=== PATIENT | female | born 1960 | race Caucasian/White ===

== ENCOUNTER → 2016-03-25 | Outpatient (REF) | payer OTHER ==
[2016-03-25 12:16] LABS: BASO # 0.1 K/mm3 (0.0-0.2); BASO % 0.9 % (0.0-1.0); EOS # 0.3 K/mm3 (0.0-0.50); EOS % 3.9 % (0.0-3.0); LARGE UNSTAINED CELL # 0.1 K/mm3 (0.0-0.4); LARGE UNSTAINED CELL % 1.7 % (0.0-4.0); LYMPH # 2.7 K/mm3 (1.5-4.5); MEAN CORPUSCULAR HEMOGLOBIN 30.1 pg (27.0-33.0); MEAN CORPUSCULAR VOLUME 91.2 fl (80.0-96.0); MONO # 0.5 K/mm3 (0.0-0.8); NEUTROPHILS # 3.8 K/mm3 (1.8-7.7); NEUTROPHILS % 51.5 % (36.0-66.0); PLATELET COUNT, AUTOMATED 220 k/mm3 (150-450); RED CELL DISTRIBUTION WIDTH 12.2 % (11.5-14.5); WHITE BLOOD COUNT 7.4 K/mm3 (4.0-10.0)
[2016-03-25 12:40] LABS: ALBUMIN 3.5 GM/DL (3.2-5.2); ALBUMIN/GLOBULIN RATIO 0.9 (1.00-1.93); BILIRUBIN,TOTAL 0.3 MG/DL (0.2-1.0); CALCIUM LEVEL 9.4 MG/DL (8.5-10.1); CREATININE FOR GFR 1.2 MG/DL (0.55-1.02); GLOMERULAR FILTRATION RATE 49.7 (>51); MAGNESIUM LEVEL 2.4 MG/DL (1.8-2.4); PERCENT SATURATION 20.9 % (13.2-37.4); POTASSIUM SERUM 4.7 MEQ/L (3.5-5.1); TOTAL PROTEIN 7.4 GM/DL (6.4-8.2)
== END ==
LOC: M SFHCPLAZ 08:07
PROVIDERS: ATTEND Family Medicine
DX: I10 Essential (primary) hypertension (principal); E78.5 Hyperlipidemia, unspecified

== ENCOUNTER → 2016-04-11 | Outpatient (REF) | payer OTHER | LOC: M SFHCWAGY 13:26 | PROVIDERS: ATTEND Family Medicine | DX: Z12.4 Encounter for screening for malignant neoplasm of cervix (principal) ==

== ENCOUNTER → 2016-04-11 | Outpatient (CLI) | payer OTHER ==
--- NOTE | 2016-04-11 14:23 | REPMRS ---
Patient History The patient states she had a clinical breast exam in 03/2016. Patient is postmenopausal. No known family history of cancer. 2 benign stereotatic breast biopsies of the right breast, May 17, 2008. Digital Woman Screen Mammo: April 11, 2016 - Exam #: [id number] Bilateral CC and MLO view(s) were taken. Technologist: Nakita Noriega, Technologist Prior study comparison: March 09, 2015, digital woman screen mammo performed at [facility]. December 07, 2012, digital woman screen mammo performed at [facility]. April 16, 2011, digital woman screen mammo performed at [facility]. June 08, 2009, bilateral bilat screen digital mammo performed at [facility]. FINDINGS: The breast tissue is almost entirely fat. There has been no change in the appearance of the mammogram from the prior studies. There is no interval development of dominant mass, areas of architectural distortion, or clustered microcalcification typical of malignancy. A stereotactic clip is again seen in deep central right breast. Scattered lymph nodes are seen in the axillae. No significant changes when compared with prior studies. ASSESSMENT: BI-RADS/ACR category 1 mammogram. Negative. Recommendation Routine screening mammogram in 1 year. A. Negative x-ray reports should not delay biopsy if a dominant or clinically suspicious mass is present. B. Four to eight percent of cancers are not identified by mammography. C. Adenosis and dense breast may obscure an underlying neoplasm.(for women over age 40). This mammogram was interpreted with the aid of an FDA-approved computer-aided dectection system. Electronically Signed By: Kostas Casarez MD 04/11/16 [id number]
== END ==
LOC: M WHC 12:57
PROVIDERS: ATTEND Family Medicine
DX: Z12.31 Encounter for screening mammogram for malignant neoplasm of breast (principal)

== ENCOUNTER → 2016-05-05 | Outpatient (CLI) | payer OTHER ==
[2016-05-05 18:04] LABS: ANION GAP 7 MEQ/L (8-16); BLOOD UREA NITROGEN 14 MG/DL (7-18); CALCIUM LEVEL 10.5 MG/DL (8.5-10.1); CARBON DIOXIDE LEVEL 30 MEQ/L (21-32); CHLORIDE LEVEL 102 MEQ/L (98-107); CREATININE FOR GFR 1.01 MG/DL (0.55-1.02); GLOMERULAR FILTRATION RATE > 60.0 (>51); GLUCOSE, FASTING 87 MG/DL (70-105); POTASSIUM SERUM 4.6 MEQ/L (3.5-5.1); SODIUM LEVEL 139 MEQ/L (136-145)
== END ==
LOC: M WUC 13:13
PROVIDERS: ATTEND Physician Assistant Medical
DX: N18.3 Chronic kidney disease, stage 3 (moderate) (principal)

== ENCOUNTER → 2016-05-30 | Outpatient (CLI) | payer OTHER ==
[~2016-05-30] MED LIST: CONRAY-43 43% 50ML VIAL (Q9960) As Ordered ONE; LIDOCAINE 1% MDV 20ML VIAL As Ordered ONE; TRIAMCINOLONE ACETONIDE SUSP 40 MG/ML VIAL (J3301) As Ordered ONE
--- NOTE | 2016-05-30 17:06 | REP ---
Left hip injection The procedure was performed under the direct supervision of Dr. Figueroa. The benefits and risks including but not limited to pain infection and bleeding and anaphylaxis were explained to the patient and informed consent was obtained. The left femoral neck was localized using fluoroscopic guidance. The skin was prepped and draped in a sterile fashion. 1% lidocaine was used as a local anesthetic. Using fluoroscopic guidance a 22-gauge spinal needle was inserted and advanced to the femoral neck. 0.5 ml of Conray 43 was injected to verify placement. 5 ml of a solution containing 4 ml of 1% Xylocaine and 1 ml of Kenalog 40 mg was injected. The needle was then removed. The patient tolerated the procedure well and there were no immediate complications. 3 seconds of fluoro time was utilized for this procedure. Reviewed by STEFFEN Posada 05/30/2016 03:49 PSigned by Ricardo Figueroa MD 05/30/2016 04:57 P
== END ==
LOC: M RADPRO 08:39
PROVIDERS: ATTEND Family Medicine
DX: M16.12 Unilateral primary osteoarthritis, left hip (principal)
CPT/HCPCS: 20610; 77002; J3301; Q9960

== ENCOUNTER → 2016-10-07 | Outpatient (CLI) | payer OTHER ==
[2016-10-07 09:46] LABS: ALBUMIN 3.3 GM/DL (3.2-5.2); ALBUMIN/GLOBULIN RATIO 0.92 (1.00-1.93); ALKALINE PHOSPHATASE 70 U/L (45-117); ALT/SGPT 17 U/L (12-78); ANION GAP 7 MEQ/L (8-16); AST/SGOT 13 U/L (15-37); BILIRUBIN,TOTAL 0.3 MG/DL (0.2-1.0); BLOOD UREA NITROGEN 16 MG/DL (7-18); CALCIUM LEVEL 9.4 MG/DL (8.5-10.1); CARBON DIOXIDE LEVEL 27 MEQ/L (21-32); CHLORIDE LEVEL 107 MEQ/L (98-107); CREATININE FOR GFR 0.95 MG/DL (0.55-1.02); GLOMERULAR FILTRATION RATE > 60.0 (>51); GLUCOSE, FASTING 108 MG/DL (70-105); POTASSIUM SERUM 4.8 MEQ/L (3.5-5.1); SODIUM LEVEL 141 MEQ/L (136-145); TOTAL PROTEIN 6.9 GM/DL (6.4-8.2)
[2016-10-07 13:56] LABS: PROGESTERONE < 0.2 NG/ML
== END ==
LOC: M WUC 08:15
PROVIDERS: ATTEND Family Medicine
DX: E55.9 Vitamin D deficiency, unspecified (principal); R73.01 Impaired fasting glucose; E78.5 Hyperlipidemia, unspecified

== ENCOUNTER → 2016-10-29 | Outpatient (CLI) | payer OTHER ==
[~2016-10-29] MED LIST changes: -TRIAMCINOLONE ACETONIDE SUSP 40 MG/ML VIAL (J3301) As Ordered ONE; +methylPREDNISolone SUSP 40 MG/ML (DEPO-medrol) VIAL (J1030) As Ordered ONE
--- NOTE | 2016-10-29 13:31 | REP ---
LEFT HIP ARTHROGRAM: The procedure was performed by STEFFEN Flores, under the direct supervision of Dr. Bella. The procedure along with its risks, benefits and complications were discussed with the patient prior to the examination. Informed consent was obtained both verbally and written. The left femoral neck was localized using fluoroscopic guidance. The skin was prepped and draped in the usual sterile fashion. 1% lidocaine was used as local anesthetic. Under fluoroscopic guidance, a 22-gauge spinal needle was inserted and advanced to the femoral neck. 0.5 mL of Conray 60 was injected to verify placement. 5 mL of a solution containing 4 mL of 1% lidocaine and 1 mL of Depo-Medrol 40 was injected into the joint space. The needle was then removed. The patient tolerated the procedure well and had no immediate complications. Fluoroscopy time of 19 seconds. Reviewed by STEFFEN Jiménez 10/29/2016 01:33 PEdited and Signed by Duarte Bella MD 10/29/2016 04:35 P
== END ==
LOC: M RADPRO 10:21
PROVIDERS: ATTEND Family Medicine
DX: M16.0 Bilateral primary osteoarthritis of hip (principal)
CPT/HCPCS: 20610; 77002; J1030; Q9960

== ENCOUNTER → 2017-03-27 | Outpatient (CLI) | payer OTHER ==
[2017-03-27 09:40] LABS: BASO # 0.1 10^3/uL (0.0-0.2); BASO % 0.6 % (0.0-1.0); EOS # 0.3 10^3/uL (0.0-0.50); EOS % 3.5 % (0.0-3.0); HEMOGLOBIN 15.4 g/dl (12.0-16.0); IMMATURE GRANULOCYTE % 0.7 % (0-3.0); LYMPH # 2.7 10^3/uL (1.5-4.5); LYMPH % 33.3 % (24.0-44.0); MEAN CORPUSCULAR HGB CONC 32.8 g/dl (32.0-36.5); MEAN CORPUSCULAR VOLUME 91.6 fl (80.0-96.0); MONO # 0.6 10^3/uL (0.0-0.8); MONO % 7.2 % (0.0-5.0); NEUTROPHILS # 4.4 10^3/uL (1.8-7.7); NEUTROPHILS % 54.7 % (36.0-66.0); PLATELET COUNT, AUTOMATED 234 10^3/uL (150-450); RED BLOOD COUNT 5.13 10^6/uL (4.00-5.40); RED CELL DISTRIBUTION WIDTH 12.7 % (11.5-14.5)
[2017-03-27 10:00] LABS: ESTIMATED AVERAGE GLUCOSE 117 MG/DL (60-110); HEMOGLOBIN A1c 5.7 %
[2017-03-27 10:11] LABS: ALBUMIN 3.4 GM/DL (3.2-5.2); ALBUMIN/GLOBULIN RATIO 0.97 (1.00-1.93); ALKALINE PHOSPHATASE 76 U/L (45-117); ALT/SGPT 16 U/L (12-78); ANION GAP 4 MEQ/L (8-16); AST/SGOT 11 U/L (7-37); BILIRUBIN,TOTAL 0.3 MG/DL (0.2-1.0); BLOOD UREA NITROGEN 16 MG/DL (7-18); CALCIUM LEVEL 9.2 MG/DL (8.5-10.1); CARBON DIOXIDE LEVEL 30 MEQ/L (21-32); CHLORIDE LEVEL 108 MEQ/L (98-107); CREATININE FOR GFR 0.91 MG/DL (0.55-1.30); FERRITIN 94 NG/ML (8-252); GLOMERULAR FILTRATION RATE > 60.0 (>51); GLUCOSE, FASTING 100 MG/DL (70-100); IRON (FE) 71 UG/DL (50-170); MAGNESIUM LEVEL 1.9 MG/DL (1.8-2.4); PERCENT SATURATION 23.4 % (13.2-45.0); POTASSIUM SERUM 4.7 MEQ/L (3.5-5.1); SODIUM LEVEL 142 MEQ/L (136-145); TOTAL IRON BINDING CAPACITY 303 UG/DL (250-450); TOTAL PROTEIN 6.9 GM/DL (6.4-8.2)
[2017-03-27 10:19] LABS: MALB URINE SIEMENS 45.5 MG/L; MAU/CREAT RATIO 22.3 MCG/MG (0.0-30.0)
[2017-03-27 10:23] LABS: AMORPHOUS SEDIMENT MODERATE (NEGATIVE); APPEARANCE, URINE CLOUDY (CLEAR); BACTERIA, URINE AUTO NEGATIVE (NEGATIVE); BILIRUBIN, URINE AUTO NEGATIVE (NEGATIVE); BLOOD, URINE BLOOD NEGATIVE (NEGATIVE); COLOR, URINE YELLOW (YELLOW); GLUCOSE, URINE (UA) AUTO NEGATIVE (NEGATIVE); KETONE, URINE AUTO NEGATIVE (NEGATIVE); LEUKOCYTE ESTERASE, URINE AUTO TRACE (NEGATIVE); MUCUS, URINE SMALL (NEGATIVE); NITRITE, URINE AUTO NEGATIVE (NEGATIVE); PROTEIN, URINE AUTO NEGATIVE (NEGATIVE); RBC, URINE AUTO 1 /HPF (0-3); SPECIFIC GRAVITY URINE AUTO 1.023 (1.002-1.035); SQUAMOUS EPITHELIAL CELL UR AU 19 /HPF (0-6); UROBILINOGEN, URINE AUTO 0.2 mg/dL (0.0-2.0); WBC, URINE AUTO 1 /HPF (0-3)
[2017-03-27 11:35] LABS: TOTAL 25(OH) VITAMIN D 31.9 NG/ML (30.0-100.0)
== END ==
LOC: M WUC 08:17
DX: E53.8 Deficiency of other specified B group vitamins (principal); I10 Essential (primary) hypertension

== ENCOUNTER → 2017-06-02 | Outpatient (CLI) | payer OTHER | LOC: M WHC 08:26 | DX: Z12.31 Encounter for screening mammogram for malignant neoplasm of breast (principal); Z78.0 Asymptomatic menopausal state | CPT/HCPCS: 77067 ==

== ENCOUNTER → 2017-06-03 | Outpatient (CLI) | payer OTHER ==
[2017-06-03 11:09] LABS: HEMATOCRIT 50.2 % (36.0-47.0); HEMOGLOBIN 16.4 g/dl (12.0-15.5); MEAN CORPUSCULAR HEMOGLOBIN 29.7 pg (27.0-33.0); MEAN CORPUSCULAR HGB CONC 32.7 g/dl (32.0-36.5); MEAN CORPUSCULAR VOLUME 90.9 fl (80.0-96.0); PLATELET COUNT, AUTOMATED 229 10^3/uL (150-450); RED BLOOD COUNT 5.52 10^6/uL (4.00-5.40); WHITE BLOOD COUNT 7.4 10^3/uL (4.0-10.0)
[2017-06-03 11:18] LABS: APPEARANCE, URINE CLOUDY (CLEAR); BACTERIA, URINE AUTO 1+ (NEGATIVE); BILIRUBIN, URINE AUTO NEGATIVE (NEGATIVE); BLOOD, URINE BLOOD NEGATIVE (NEGATIVE); COLOR, URINE YELLOW (YELLOW); GLUCOSE, URINE (UA) AUTO NEGATIVE (NEGATIVE); KETONE, URINE AUTO NEGATIVE (NEGATIVE); LEUKOCYTE ESTERASE, URINE AUTO 1+ (NEGATIVE); MUCUS, URINE SMALL (NEGATIVE); NITRITE, URINE AUTO NEGATIVE (NEGATIVE); PROTEIN, URINE AUTO NEGATIVE (NEGATIVE); RBC, URINE AUTO 3 /HPF (0-3); SPECIFIC GRAVITY URINE AUTO 1.019 (1.002-1.035); SQUAMOUS EPITHELIAL CELL UR AU 13 /HPF (0-6); UROBILINOGEN, URINE AUTO 0.2 mg/dL (0.0-2.0); WBC, URINE AUTO 1 /HPF (0-3)
[2017-06-03 11:19] LABS: INR 0.94; PROTHROMBIN TIME 12.6 SECONDS (12.4-14.5)
[2017-06-03 11:35] LABS: ALBUMIN 3.7 GM/DL (3.2-5.2); ALBUMIN/GLOBULIN RATIO 0.97 (1.00-1.93); ALKALINE PHOSPHATASE 80 U/L (45-117); ALT/SGPT 21 U/L (12-78); ANION GAP 4 MEQ/L (8-16); AST/SGOT 12 U/L (7-37); BILIRUBIN,TOTAL 0.6 MG/DL (0.2-1.0); BLOOD UREA NITROGEN 13 MG/DL (7-18); CALCIUM LEVEL 9.8 MG/DL (8.5-10.1); CARBON DIOXIDE LEVEL 28 MEQ/L (21-32); CHLORIDE LEVEL 108 MEQ/L (98-107); CREATININE FOR GFR 0.92 MG/DL (0.55-1.30); GLOMERULAR FILTRATION RATE > 60.0 (>51); GLUCOSE, FASTING 100 MG/DL (70-100); POTASSIUM SERUM 4.6 MEQ/L (3.5-5.1); SODIUM LEVEL 140 MEQ/L (136-145); TOTAL PROTEIN 7.5 GM/DL (6.4-8.2)
[2017-06-03 11:48] LABS: ERYTHROCYTE SEDIMENTATION RATE 2 mm/hr (0-30)
== END ==
LOC: M ADMPAT 09:25
DX: M16.12 Unilateral primary osteoarthritis, left hip (principal)

== ENCOUNTER → 2017-06-29 | Outpatient (REF) | payer OTHER ==
[2017-06-29 13:21] LABS: INR 2.74; PROTHROMBIN TIME 30.2 SECONDS (12.4-14.5)
== END ==
LOC: M LABDRAW1 12:10
DX: Z96.642 Presence of left artificial hip joint (principal)

== ENCOUNTER → 2017-07-02 | Outpatient (REF) | payer OTHER ==
[2017-07-02 11:14] LABS: INR 2.46; PROTHROMBIN TIME 27.6 SECONDS (12.4-14.5)
== END ==
LOC: M SHH 10:40
DX: Z79.01 Long term (current) use of anticoagulants (principal)

== ENCOUNTER → 2017-07-06 | Outpatient (REF) | payer OTHER ==
[2017-07-06 15:18] LABS: INR 1.72; PROTHROMBIN TIME 20.7 SECONDS (12.4-14.5)
== END ==
LOC: M LAB REF 15:01
DX: Z79.01 Long term (current) use of anticoagulants (principal)

== ENCOUNTER → 2017-07-09 | Outpatient (REF) | payer OTHER ==
[2017-07-09 15:07] LABS: PROTHROMBIN TIME 19.5 SECONDS (12.4-14.5)
== END ==
LOC: M LABDRAW1 11:43
DX: Z47.1 Aftercare following joint replacement surgery (principal)

== ENCOUNTER → 2017-07-14 | Outpatient (REF) | payer OTHER ==
[2017-07-14 15:03] LABS: PROTHROMBIN TIME 17.5 SECONDS (12.4-14.5)
== END ==
LOC: M SHH 14:38
DX: Z47.89 Encounter for other orthopedic aftercare (principal); Z79.01 Long term (current) use of anticoagulants; M16.12 Unilateral primary osteoarthritis, left hip
CPT/HCPCS: 85610

== ENCOUNTER → 2017-07-16 | Outpatient (REF) | payer OTHER ==
[2017-07-16 20:06] LABS: INR 1.68; PROTHROMBIN TIME 20.3 SECONDS (12.4-14.5)
== END ==
LOC: M LAB REF 19:00
DX: M16.12 Unilateral primary osteoarthritis, left hip (principal)
CPT/HCPCS: 85610

== ENCOUNTER → 2017-07-20 | Outpatient (REF) | payer OTHER ==
[2017-07-20 15:10] LABS: INR 1.78; PROTHROMBIN TIME 21.2 SECONDS (12.4-14.5)
== END ==
LOC: M LAB REF 14:45
DX: Z47.1 Aftercare following joint replacement surgery (principal); Z96.642 Presence of left artificial hip joint; Z79.01 Long term (current) use of anticoagulants
CPT/HCPCS: 85610

== ENCOUNTER → 2017-07-23 | Outpatient (REF) | payer OTHER ==
[2017-07-23 13:59] LABS: INR 1.72; PROTHROMBIN TIME 20.7 SECONDS (12.4-14.5)
== END ==
LOC: M LAB REF 13:28
DX: Z47.1 Aftercare following joint replacement surgery (principal); Z96.642 Presence of left artificial hip joint
CPT/HCPCS: 85610

== ENCOUNTER → 2017-12-15 | Outpatient (REF) | payer OTHER ==
[2017-12-15 11:41] LABS: BASO # 0.1 10^3/uL (0.0-0.2); BASO % 0.9 % (0.0-1.0); EOS # 0.3 10^3/uL (0.0-0.50); EOS % 3.5 % (0.0-3.0); HEMATOCRIT 49.5 % (36.0-47.0); HEMOGLOBIN 15.9 g/dl (12.0-15.5); IMMATURE GRANULOCYTE % 0.4 % (0-3.0); LYMPH # 2.4 10^3/uL (1.5-4.5); LYMPH % 30.5 % (24.0-44.0); MEAN CORPUSCULAR HEMOGLOBIN 29.4 pg (27.0-33.0); MEAN CORPUSCULAR HGB CONC 32.1 g/dl (32.0-36.5); MEAN CORPUSCULAR VOLUME 91.7 fl (80.0-96.0); MONO # 0.6 10^3/uL (0.0-0.8); MONO % 7.8 % (0.0-5.0); NEUTROPHILS # 4.4 10^3/uL (1.8-7.7); NEUTROPHILS % 56.9 % (36.0-66.0); PLATELET COUNT, AUTOMATED 246 10^3/uL (150-450); RED CELL DISTRIBUTION WIDTH 13.3 % (11.5-14.5); WHITE BLOOD COUNT 7.7 10^3/uL (4.0-10.0)
[2017-12-15 12:04] LABS: ALBUMIN 3.7 GM/DL (3.2-5.2); ALKALINE PHOSPHATASE 84 U/L (45-117); ALT/SGPT 20 U/L (12-78); ANION GAP 5 MEQ/L (8-16); AST/SGOT 10 U/L (7-37); BILIRUBIN,TOTAL 0.2 MG/DL (0.2-1.0); BLOOD UREA NITROGEN 14 MG/DL (7-18); C REACTIVE PROTEIN QUANTITATIV 0.31 MG/DL (0.00-0.30); CALCIUM LEVEL 10.1 MG/DL (8.5-10.1); CARBON DIOXIDE LEVEL 29 MEQ/L (21-32); CHLORIDE LEVEL 104 MEQ/L (98-107); CHOLESTEROL LEVEL 204 MG/DL (<200); CHOLESTEROL RISK RATIO 4.434 (<5); CPK CREATINE PHOSPHOKINASE 54 U/L (26-192); CREATININE FOR GFR 0.93 MG/DL (0.55-1.30); GLOMERULAR FILTRATION RATE > 60.0 (>51); GLUCOSE, FASTING 102 MG/DL (70-100); HDL CHOLESTEROL 46 MG/DL (>40); LDL CHOLESTEROL 114 MG/DL (<100); NON-HDL-C 158 MG/DL; POTASSIUM SERUM 5.1 MEQ/L (3.5-5.1); SODIUM LEVEL 138 MEQ/L (136-145); TOTAL PROTEIN 7.4 GM/DL (6.4-8.2); TRIGLYCERIDES LEVEL 222 MG/DL (<150)
[2017-12-15 12:06] LABS: ESTIMATED AVERAGE GLUCOSE 123 MG/DL (60-110); HEMOGLOBIN A1c 5.9 %; PTH INTACT 93.1 PG/ML (18.5-88.0); TOTAL 25(OH) VITAMIN D 29.9 NG/ML (30.0-100.0)
[2017-12-15 12:54] LABS: HEMATOCRIT 49.5 % (36.0-47.0)
[2017-12-15 14:44] LABS: PRETREATED FOLATE FOR RBCFOL 14.6 NG/ML; RBC FOLATE 619.4 NG/ML (280-791)
[2017-12-16 14:42] LABS: INSULIN LEVEL 26.4 uIU/mL (2.6-24.9)
== END ==
LOC: M SFHCPLAZ 08:43
DX: R73.01 Impaired fasting glucose (principal); E78.5 Hyperlipidemia, unspecified; E53.8 Deficiency of other specified B group vitamins; E55.9 Vitamin D deficiency, unspecified

== ENCOUNTER → 2018-01-11 | Outpatient (CLI) | payer OTHER | LOC: M RAD 08:49 | DX: E21.3 Hyperparathyroidism, unspecified (principal) | CPT/HCPCS: 78070 ==

== ENCOUNTER → 2018-05-24 | Outpatient (CLI) | payer OTHER ==
[~2018-05-24] MED LIST changes: +B121000T PO; -CONRAY-43 43% 50ML VIAL (Q9960) As Ordered ONE; +COUM2.5T17 PO; +FAMO20TA PO; +FOLI400T PO; -LIDOCAINE 1% MDV 20ML VIAL As Ordered ONE; +LISI40TA PO; +PERC5TAB12 PO; +VARE1TA PO; -methylPREDNISolone SUSP 40 MG/ML (DEPO-medrol) VIAL (J1030) As Ordered ONE
[2018-05-24 12:12] LABS: BASO # 0.1 10^3/uL (0.0-0.2); BASO % 0.5 % (0.0-1.0); EOS # 0.2 10^3/uL (0.0-0.50); EOS % 1.6 % (0.0-3.0); HEMATOCRIT 50.2 % (36.0-47.0); HEMOGLOBIN 16.1 g/dl (12.0-15.5); LYMPH # 2.4 10^3/uL (1.5-4.5); LYMPH % 18.3 % (24.0-44.0); MEAN CORPUSCULAR HEMOGLOBIN 29.8 pg (27.0-33.0); MEAN CORPUSCULAR HGB CONC 32.1 g/dl (32.0-36.5); MONO # 1.1 10^3/uL (0.0-0.8); MONO % 8.7 % (0.0-5.0); NEUTROPHILS # 9.3 10^3/uL (1.8-7.7); NEUTROPHILS % 70.2 % (36.0-66.0); PLATELET COUNT, AUTOMATED 223 10^3/uL (150-450); WHITE BLOOD COUNT 13.2 10^3/uL (4.0-10.0)
[2018-05-24 12:43] LABS: ALBUMIN 3.5 GM/DL (3.2-5.2); ALT/SGPT 15 U/L (12-78); BILIRUBIN,TOTAL 0.6 MG/DL (0.2-1.0); BLOOD UREA NITROGEN 10 MG/DL (7-18); CARBON DIOXIDE LEVEL 29 MEQ/L (21-32); CHLORIDE LEVEL 104 MEQ/L (98-107); CREATININE FOR GFR 0.92 MG/DL (0.55-1.30); GLOMERULAR FILTRATION RATE > 60.0 (>51); GLUCOSE, FASTING 108 MG/DL (70-100); POTASSIUM SERUM 4.4 MEQ/L (3.5-5.1); SODIUM LEVEL 137 MEQ/L (136-145); TOTAL PROTEIN 7.2 GM/DL (6.4-8.2)
--- NOTE | 2018-05-25 09:40 | REP ---
Clinical: Generalized abdominal pain. Technique: Two supine views of the abdomen and pelvis. Findings: Bowel gas pattern is nonspecific. No organomegaly. No abnormal calcifications. Phleboliths are noted in the pelvis. The patient is status post left hip replacement. Right hip demonstrates moderate arthritic changes including subchondral sclerosis and joint space narrowing. Impression: 1. Nonspecific bowel gas pattern. 2. Moderate arthritic change to the right hip. Electronically Signed by Erich Spring MD 05/25/2018 09:32 A
== END ==
LOC: M WUC 09:00
PROVIDERS: ATTEND Physician Assistant
DX: R14.3 Flatulence (principal); M16.11 Unilateral primary osteoarthritis, right hip

== ENCOUNTER → 2018-05-28 | Outpatient (CLI) | payer OTHER ==
[~2018-05-28] MED LIST changes: +GASTROGRAFIN SOLUTION 30ML (Q9963) As Ordered ONE; +ISOVUE-370 76% 100ML VIAL (Q9967) As Ordered ONE
--- NOTE | 2018-05-28 12:01 | REP ---
CT of the abdomen and pelvis with IV and oral contrast: There are no comparisons. The patient complains of lower abdominal pain. The visualized lung thornton are unremarkable. The hepatic parenchyma, gallbladder, pancreas, spleen, adrenals, kidneys and abdominal aorta are unremarkable. A small accessory spleen is incidentally noted. There is no bowel distension or obstruction. There are numerous diverticula in the sigmoid colon. There is no CT evidence of diverticulitis. There is no pneumoperitoneum or ascites. Pelvis: There is a left hip arthroplasty resulting in beam hardening artifact and image degradation. Images are reproduced using beam-hardening reduction software. The uterus is difficult to identify and may be obscured by the beam-hardening or could be surgically absent. The adnexa are grossly unremarkable. No ascites is identified. No adenopathy is identified. However, images of the pelvis are degraded by the beam-hardening artifact. The bladder is grossly unremarkable. The appendix and terminal ileum are unremarkable. Impression: Diverticulosis. There is no CT evidence of diverticulitis. Otherwise, essentially negative CT of the abdomen and pelvis. Degenerative disc disease in the lumbar spine L5 S1 is incidentally identified. Beam-hardening artifact from the left hip arthroplasty degrades images in the pelvis. Electronically Signed by Ricardo Shaffer MD 05/28/2018 11:53 A
== END ==
LOC: M RAD 09:36
PROVIDERS: ATTEND Physician Assistant
DX: R10.30 Lower abdominal pain, unspecified (principal)

== ENCOUNTER → 2018-05-28 | Outpatient (REF) | payer OTHER ==
[~2018-05-28] MED LIST changes: -GASTROGRAFIN SOLUTION 30ML (Q9963) As Ordered ONE; -ISOVUE-370 76% 100ML VIAL (Q9967) As Ordered ONE
== END ==
LOC: M LAB REF 12:06
PROVIDERS: ATTEND Physician Assistant
DX: R10.30 Lower abdominal pain, unspecified (principal)

== ENCOUNTER → 2018-08-31 | Outpatient (CLI) | payer OTHER ==
--- NOTE | 2018-08-31 11:35 | REP ---
Left hip two views: Comparison is 09/22/2013. There has been interim total hip arthroplasty. The components are tightly applied and in satisfactory positions alignment. There is no acute fracture or dislocation. There are no calcifications or foreign bodies. Impression: Total arthroplasty. Electronically Signed by Ricardo Shaffer MD 08/31/2018 11:28 A
--- NOTE | 2018-08-31 11:38 | REP ---
Left knee five views: Comparison is 09/22/2013. There is no joint space narrowing. There are small osteophytes at the medial, lateral and patellofemoral joint spaces compatible with mild osteoarthritis. There is no joint effusion. No calcifications. There is a nondisplaced fracture in the proximal shaft of the fibula. Impression: Nondisplaced fracture of the proximal fibular shaft. Mild tricompartment osteoarthritis. Electronically Signed by Ricardo Shaffer MD 08/31/2018 11:30 A
--- NOTE | 2018-08-31 11:39 | REP ---
Left tibia-fibula three views: There is a nondisplaced fracture of the proximal shaft of the fibula. No tibial fracture is identified. Mineralization is normal. No calcifications or foreign bodies. Impression: Nondisplaced fracture of the fibula. Electronically Signed by Ricardo Shaffer MD 08/31/2018 11:31 A
--- NOTE | 2018-08-31 11:40 | REP ---
Left ankle four views: There is a nondisplaced transverse fracture at the base of the medial malleolus. There is a nondisplaced fracture at the anterior margin of the distal tibia. There is no dislocation. No other fractures are identified. Mineralization joint spaces are unremarkable. There are no calcifications or foreign bodies. Impression: Nondisplaced fracture of the medial malleolus. Nondisplaced fracture of the distal tibia anteriorly. Electronically Signed by Ricardo Shaffer MD 08/31/2018 11:32 A
--- NOTE | 2018-08-31 11:42 | REP ---
Right foot four views: There is a nondisplaced intra-articular fracture in the head of the great toe proximal phalange. There is no dislocation. Mineralization and joint spaces are otherwise unremarkable. There is a defect in the head of the fifth digit metatarsal laterally. This may be post-traumatic or postsurgical. Impression: Nondisplaced comminuted intra-articular fracture in the head of the great toe proximal phalange. Defect in the head of the fifth digit metatarsal, postsurgical versus post-traumatic. Electronically Signed by Ricardo Shaffer MD 08/31/2018 11:35 A
== END ==
LOC: M WUC 10:25
PROVIDERS: ATTEND Physician Assistant
DX: S80.02XA Contusion of left knee, initial encounter (principal); S80.12XA Contusion of left lower leg, initial encounter; S91.201A Unspecified open wound of right great toe with damage to nail, initial encounter

== ENCOUNTER 2018-09-27 03:44 | Emergency (ER) | payer OTHER ==
[~2018-09-27] VITALS: Ht 175.3 cm; Wt 130.5 kg
[2018-09-27] MEDS ORDERED: CLOPIDOGREL 300 MG TAB (PLAVIX) ONE (03:45)
[2018-09-27] MEDS ORDERED: TENECTEPLASE 50 MG KIT (TNKase)(J3101) ONE (03:45)
[2018-09-27] MEDS ORDERED: HEPARIN 25,000 UNITS/250 ML D5W BAG (100 UNITS/ML) ONE (03:45)
[2018-09-27] MEDS ORDERED: HEPARIN SOD (PORCINE) 5000 UNITS/ML VIAL ONE (03:45)
[2018-09-27] MEDS ORDERED: HEPARIN 25,000 UNITS/250 ML D5W BAG (100 UNITS/ML) As Ordered ONE (03:58)
[2018-09-27] MEDS ORDERED: METOCLOPRAMIDE INJ 10MG/2ML VIAL (J2765) IV ONE (04:00)
[2018-09-27] MEDS: TENECTEPLASE 50 MG KIT (TNKase)(J3101) IV ONE ×2 (04:02→04:14)
[2018-09-27] MEDS ORDERED: HEPARIN DRIP 25,000 UNITS in APPROPRIATE DILUENT 1 EA IV SCH (04:02)
[2018-09-27 04:04] LABS: BASO # 0.1 10^3/uL (0.0-0.2); BASO % 0.8 % (0.0-1.0); EOS # 0.4 10^3/uL (0.0-0.50); EOS % 3.8 % (0.0-3.0); HEMATOCRIT 49.1 % (36.0-47.0); HEMOGLOBIN 16.2 g/dl (12.0-15.5); LYMPH # 3.1 10^3/uL (1.5-4.5); LYMPH % 29.1 % (24.0-44.0); MEAN CORPUSCULAR HEMOGLOBIN 30.6 pg (27.0-33.0); MEAN CORPUSCULAR VOLUME 92.6 fl (80.0-96.0); MONO # 0.8 10^3/uL (0.0-0.8); MONO % 7.4 % (0.0-5.0); NEUTROPHILS # 6.2 10^3/uL (1.8-7.7); NEUTROPHILS % 58.4 % (36.0-66.0); PLATELET COUNT, AUTOMATED 223 10^3/uL (150-450); WHITE BLOOD COUNT 10.6 10^3/uL (4.0-10.0)
[2018-09-27 04:15] LABS: INR 0.89; PROTHROMBIN TIME 11.7 SECONDS (11.8-14.0)
[2018-09-27] MEDS ORDERED: HEPARIN SOD (PORCINE) 5000 UNITS/ML VIAL IV ONE (04:15)
[2018-09-27] MEDS ORDERED: CLOPIDOGREL 300 MG TAB (PLAVIX) PO ONE (04:15)
[2018-09-27] MEDS ORDERED: NITROGLYCERIN 2% OINT 1 GM *U/D* PKT As Ordered ONE (04:16)
[2018-09-27] MEDS ORDERED: NITROGLYCERIN 2% OINT 1 GM *U/D* PKT TOP ONE (04:30)
[2018-09-27 04:32] VITALS: BP 149/73
[2018-09-27 04:35] LABS: ALBUMIN 3.5 GM/DL (3.2-5.2); BILIRUBIN,TOTAL 0.2 MG/DL (0.2-1.0); CK-MB VALUE MASS 16.5 NG/ML (<3.6); CREATININE FOR GFR 1.02 MG/DL (0.55-1.30); GLOMERULAR FILTRATION RATE 59.3 (>51); MB/CK RELATIVE INDEX 8.68 (< OR =4); TOTAL PROTEIN 7.2 GM/DL (6.4-8.2); TROPONIN I 1.3 NG/ML (< 0.10)
--- NOTE | 2018-09-27 05:50 | ECGEPIP ---
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
--- NOTE | 2018-09-27 08:13 | REP ---
Portable chest x-ray: Single view. History: Chest pain. Comparison study: June 03, 2017. Findings: EKG monitoring electrodes overlie the chest. Lungs are symmetrically aerated and clear. Pleural angles are sharp. Heart size is normal. Pulmonary vasculature is not increased. No significant bony abnormality is seen. Impression: No acute disease. Electronically Signed by Duarte Bella MD 09/27/2018 08:05 A
== END 2018-09-27 04:35 | disposition short-term general hospital (02) ==
LOC: M ED 03:44
DX: I21.3 ST elevation (STEMI) myocardial infarction of unspecified site (principal); I10 Essential (primary) hypertension; K21.9 Gastro-esophageal reflux disease without esophagitis; Z87.891 Personal history of nicotine dependence; Z79.01 Long term (current) use of anticoagulants; Z79.899 Other long term (current) drug therapy
CPT/HCPCS: 71045; 80053; 82550; 82553; 83690; 84484; 85025; 85610; 93005; 93041; 96374; 96375; 99291; J2765; J3101